=== PATIENT | female | born 1955 | race Caucasian/White ===

== ENCOUNTER 2018-02-03 11:49 | Inpatient (IN) | payer OTHER, MEDICAID ==
[~2018-02-03] VITALS: Ht 175.3 cm; Wt 93.6 kg
[2018-02-03] MEDS ORDERED: OXYC10TA6 PO (12:29)
[2018-02-03] MEDS ORDERED: DULO60CA7 PO (12:29)
[2018-02-03] MEDS ORDERED: TRAM50TA2 PO (12:29)
[2018-02-03] MEDS ORDERED: methylPREDNISolone SOD SUCC 125 MG/2 ML IVP ONE (12:30)
[2018-02-03] MEDS ORDERED: SODIUM CHLORIDE 0.9% 1,000ML IVBOLUS ONE (12:30)
[2018-02-03] MEDS ORDERED: ALBUTEROL SULFATE 2.5 MG/3 ML NPPB ONE (12:30)
[2018-02-03] MEDS ORDERED: AZITHROMYCIN 500 MG in SODIUM CHLORIDE 0.9% 250 ML IVPB ONE (12:30)
[2018-02-03] MEDS ORDERED: SODIUM CHLORIDE FLUSH 10ML SYR IVF ONE (12:30)
[2018-02-03] MEDS ORDERED: ALBUTEROL SULFATE 2.5MG/0.5ML ONE (12:38)
[2018-02-03] MEDS ORDERED: methylPREDNISolone SOD SUCC 125 MG/2 ML ONE (12:45)
[2018-02-03 13:03] LABS: ALBUMIN 2.7 g/dL (3.4-5.0); ANION GAP 13 mmol/L (5-15); CALCIUM 8.7 mg/dL (8.5-10.1); CHLORIDE 94 mmol/L (98-107); MEAN CORPUSCULAR HEMOGLOBIN 30.7 pg (27.0-34.8); MEAN CORPUSCULAR HGB CONC 34.6 g/dL (32.4-35.8); MEAN CORPUSCULAR VOLUME 88.8 fL (80-100); MEAN PLATELET VOLUME 8.6 fL (7.4-10.4); PLATELET COUNT 445 x10^3/uL (130-400); RED BLOOD COUNT 4.44 x10^6/uL (3.82-5.3); RED CELL DISTRIBUTION WIDTH 13.2 % (9.6-15.2)
[2018-02-03 13:09] LABS: ALANINE AMINOTRANSFERASE 29 U/L (12-78); ALKALINE PHOSPHATASE 115 U/L (45-117); BILIRUBIN,TOTAL 1.3 mg/dL (0.2-1.0); CREATININE 1.01 mg/dL (0.55-1.02); TROPONIN I < 0.015 ng/mL (0.000-0.045)
[2018-02-03 13:28] LABS: MD YES
[2018-02-03 13:30] LABS: <RBC MORPHOLOGY> NORMAL; BANDS%(MANUAL) 1 % (0-7); LYMPH#(MANUAL) 1.48 x10^3/uL (1-3.4); LYMPHS% (MANUAL) 5 % (22-44); MONOS#(MANUAL) 2.36 x10^3/uL (0.3-2.7); MONOS% (MANUAL) 8 % (2-9); SEG#(MANUAL) 25.37 x10^3/uL (1.8-6.8); SEGS% (MANUAL) 86 % (42-75)
[2018-02-03] MEDS ORDERED: RIVAROXABAN 20 MG TABLET PO ONE (13:30)
[2018-02-03] MEDS ORDERED: SODIUM CHLORIDE 0.9%, 500ML IVBOLUS ONE (13:30)
[2018-02-03] MEDS ORDERED: MORPHINE SULFATE 4 MG/ML, 1ML IVPush ONE (13:30)
[2018-02-03] MEDS ORDERED: POTASSIUM CHLORIDE 20 MEQ TAB.ER.PRT PO ONE (13:30)
[2018-02-03] MEDS ORDERED: CEFTRIAXONE PMX 1GM/50ML 50 ML IV ONE (13:30)
[2018-02-03 13:31] LABS: <PLATELET ESTIMATE> INCREASED; <PLT MORPHOLOGY> NORMAL PLT MORPH
[2018-02-03] MEDS ORDERED: MORPHINE SULFATE 4 MG/ML, 1ML ONE (13:49)
[2018-02-03] MEDS ORDERED: POTASSIUM CHLORIDE 20 MEQ TAB.ER.PRT ONE (13:49)
[2018-02-03] MEDS ORDERED: RIVAROXABAN 20 MG TABLET ONE (13:49)
[2018-02-03] MEDS ORDERED: MAGNESIUM SULFATE PMX 2GM/50ML 50 ML IV ONE (14:00)
[2018-02-03] MEDS ORDERED: CEFTRIAXONE PMX 1GM/50ML 50 ML ONE (14:44)
[2018-02-03] MEDS ORDERED: ONDANSETRON 2MG/ML, 2ML IVPB PRN (15:00)
[2018-02-03] MEDS ORDERED: DOCUSATE 100 MG CAPSULE PO PRN (15:00)
[2018-02-03] MEDS ORDERED: NICOTINE 14MG/24 HR PATCH.TD24 TD ONE (15:00)
[2018-02-03] MEDS ORDERED: DIGOXIN 0.25 MG/ML, 2ML IVPush ONE (15:00)
[2018-02-03] MEDS ORDERED: DILTIAZEM 5 MG/ML, 5ML IVPush ONE (15:00)
[2018-02-03] MEDS ORDERED: KETOROLAC 30 MG/1 ML IVPush PRN (15:00)
[2018-02-03] MEDS ORDERED: PHARMACY MAY ADJ FOR RENAL FX MC PRN (15:00)
[2018-02-03] MEDS ORDERED: SIMETHICONE DROPS 40 MG/0.6 ML BOTTLE PO PRN (15:00)
[2018-02-03] MEDS ORDERED: ACETAMINOPHEN 325 MG TABLET PO PRN (15:00)
[2018-02-03] MEDS ORDERED: OMNIPAQUE 350 MG/ML, 100ML BOTTLE ONE (15:46)
[2018-02-03] MEDS: METHOCARBAMOL 500 MG TABLET PO SCH ×2 (16:00→20:30)
[2018-02-03 16:25] VITALS: BP 96/63
[2018-02-03] MEDS: OXYcodone IR 5MG TABLET PO PRN (17:02)
[2018-02-03] MEDS: POTASSIUM CHLORIDE 20 MEQ TAB.ER.PRT PO SCH (17:02)
[2018-02-03] MEDS: GUAIFENESIN 200 MG TABLET PO SCH ×2 (17:03→20:29)
[2018-02-03] MEDS: ENOXAPARIN 100 MG/ML SQ SCH (17:03)
[2018-02-03] MEDS: SODIUM CHLORIDE 0.9% 1,000 ML IV SCH (17:36)
[2018-02-03 18:29] LABS: MICROSCOPIC AUTO
[2018-02-03] MEDS: DOXYCYCLINE 100 MG in DEXTROSE 5% 250 ML IV SCH (18:35)
[2018-02-03] MEDS: LIDODERM 5% PATCH TD SCH (18:36)
[2018-02-03 18:38] LABS: CULTURE INDICATED? NO
[2018-02-03 20:19] VITALS: BP 113/69
[2018-02-03] MEDS: FAMOTIDINE 20 MG TABLET PO SCH (20:29)
[2018-02-04] MEDS: OXYcodone IR 5MG TABLET PO PRN ×2 (02:08→10:57)
[2018-02-04 03:30] VITALS: BP 112/65
[2018-02-04 05:06] LABS: MEAN CORPUSCULAR HEMOGLOBIN 30.6 pg (27.0-34.8); MEAN CORPUSCULAR HGB CONC 33.8 g/dL (32.4-35.8); MEAN CORPUSCULAR VOLUME 90.5 fL (80-100); MEAN PLATELET VOLUME 8.6 fL (7.4-10.4); PLATELET COUNT 430 x10^3/uL (130-400); RED CELL DISTRIBUTION WIDTH 12.9 % (9.6-15.2)
[2018-02-04 05:16] LABS: ALANINE AMINOTRANSFERASE 31 U/L (12-78); ALBUMIN 2.5 g/dL (3.4-5.0); ANION GAP 7 mmol/L (5-15); CALCIUM 8.5 mg/dL (8.5-10.1); CHLORIDE 102 mmol/L (98-107); CREATININE 0.68 mg/dL (0.55-1.02)
[2018-02-04] MEDS: DOXYCYCLINE 100 MG in DEXTROSE 5% 250 ML IV SCH ×2 (05:20→16:24)
[2018-02-04] MEDS: METHOCARBAMOL 500 MG TABLET PO SCH ×4 (05:21→22:05)
[2018-02-04] MEDS: GUAIFENESIN 200 MG TABLET PO SCH ×4 (05:21→22:05)
[2018-02-04] MEDS: ENOXAPARIN 100 MG/ML SQ SCH ×2 (05:23→16:26)
[2018-02-04 05:25] LABS: ALKALINE PHOSPHATASE 105 U/L (45-117); BILIRUBIN,TOTAL 0.4 mg/dL (0.2-1.0); TOTAL PROTEIN 7.2 g/dL (6.4-8.2)
[2018-02-04 05:33] LABS: BASOPHILS # (AUTO) 0.06 x10^3/uL (0-0.1); BASOPHILS % (AUTO) 0 % (0-1); EOSINOPHILS % (AUTO) 0 % (1-7); LYMPHOCYTES # (AUTO) 0.96 x10^3/uL (1-3.4); LYMPHOCYTES % (AUTO) 5 % (22-44); MD SCAN; MONOCYTES # (AUTO) 0.43 x10^3/uL (0.2-0.8); MONOCYTES % (AUTO) 2 % (2-9); NEUTROPHILS # (AUTO) 17.52 x10^3/uL (1.8-6.8); NEUTROPHILS % (AUTO) 92 % (42-75)
[2018-02-04 08:11] VITALS: BP 116/79
[2018-02-04 08:24] LABS: INTERNATIONAL NORMALIZED RATIO 1.14 (0.93-1.1); PROTHROMBIN TIME 11.7 Seconds (9.6-11.5)
[2018-02-04] MEDS: SODIUM CHLORIDE 0.9% 1,000 ML IV SCH (08:31)
[2018-02-04] MEDS: FAMOTIDINE 20 MG TABLET PO SCH ×2 (08:31→22:05)
[2018-02-04] MEDS: POTASSIUM CHLORIDE 20 MEQ TAB.ER.PRT PO SCH (08:32)
[2018-02-04] MEDS: DULOXETINE 30 MG CAPSULE.DR PO SCH (08:32)
[2018-02-04] MEDS: CEFTRIAXONE 1,000 MG in SODIUM CHLORIDE 0.9% 50 ML IVPB SCH (12:41)
[2018-02-04 14:03] VITALS: BP 103/65
[2018-02-04 18:03] VITALS: BP 136/73
[2018-02-04] MEDS: METOPROLOL TARTRATE 25 MG TABLET PO SCH (22:06)
[2018-02-04] MEDS: LIDODERM 5% PATCH TD SCH (22:11)
[2018-02-05 00:44] VITALS: BP 105/71
[2018-02-05] MEDS: ENOXAPARIN 100 MG/ML SQ SCH ×2 (05:00→16:33)
[2018-02-05] MEDS: GUAIFENESIN 200 MG TABLET PO SCH ×4 (05:13→20:52)
[2018-02-05] MEDS: DOXYCYCLINE 100 MG in DEXTROSE 5% 250 ML IV SCH ×2 (05:13→16:30)
[2018-02-05] MEDS: METHOCARBAMOL 500 MG TABLET PO SCH ×4 (05:14→20:52)
[2018-02-05] MEDS: OXYcodone IR 5MG TABLET PO PRN ×3 (05:14→20:53)
[2018-02-05 06:17] LABS: BASOPHILS # (AUTO) 0.05 x10^3/uL (0-0.1); BASOPHILS % (AUTO) 0 % (0-1); EOSINOPHILS # (AUTO) 0.06 x10^3/uL (0-0.4); EOSINOPHILS % (AUTO) 0 % (1-7); LYMPHOCYTES # (AUTO) 1.74 x10^3/uL (1-3.4); LYMPHOCYTES % (AUTO) 11 % (22-44); MD NO; MEAN CORPUSCULAR HEMOGLOBIN 30.8 pg (27.0-34.8); MEAN CORPUSCULAR VOLUME 90.5 fL (80-100); MEAN PLATELET VOLUME 8.1 fL (7.4-10.4); MONOCYTES # (AUTO) 1.17 x10^3/uL (0.2-0.8); MONOCYTES % (AUTO) 7 % (2-9); NEUTROPHILS # (AUTO) 13.07 x10^3/uL (1.8-6.8); NEUTROPHILS % (AUTO) 81 % (42-75); PLATELET COUNT 467 x10^3/uL (130-400); RED BLOOD COUNT 3.68 x10^6/uL (3.82-5.3); RED CELL DISTRIBUTION WIDTH 13.6 % (9.6-15.2)
[2018-02-05 06:24] LABS: ALBUMIN 2.4 g/dL (3.4-5.0); ANION GAP 6 mmol/L (5-15); CALCIUM 8.5 mg/dL (8.5-10.1); CHLORIDE 103 mmol/L (98-107); CREATININE 0.69 mg/dL (0.55-1.02)
[2018-02-05 08:36] VITALS: BP 107/64
[2018-02-05] MEDS: METOPROLOL TARTRATE 25 MG TABLET PO SCH ×2 (08:38→20:53)
[2018-02-05] MEDS: FAMOTIDINE 20 MG TABLET PO SCH ×2 (08:38→20:52)
[2018-02-05] MEDS: DULOXETINE 30 MG CAPSULE.DR PO SCH (08:38)
[2018-02-05] MEDS: CEFTRIAXONE 1,000 MG in SODIUM CHLORIDE 0.9% 50 ML IVPB SCH (12:41)
[2018-02-05 14:34] VITALS: BP 108/62
[2018-02-05 20:55] VITALS: BP 108/58
[2018-02-05] MEDS: LIDODERM 5% PATCH TD SCH (21:02)
[2018-02-06 01:19] VITALS: BP 124/74
[2018-02-06 04:55] LABS: BASOPHILS # (AUTO) 0.11 x10^3/uL (0-0.1); BASOPHILS % (AUTO) 1 % (0-1); EOSINOPHILS # (AUTO) 0.04 x10^3/uL (0-0.4); EOSINOPHILS % (AUTO) 1 % (1-7); LYMPHOCYTES # (AUTO) 1.41 x10^3/uL (1-3.4); LYMPHOCYTES % (AUTO) 15 % (22-44); MD NO; MEAN CORPUSCULAR HEMOGLOBIN 30.5 pg (27.0-34.8); MEAN CORPUSCULAR HGB CONC 33.8 g/dL (32.4-35.8); MEAN CORPUSCULAR VOLUME 90.2 fL (80-100); MEAN PLATELET VOLUME 8.3 fL (7.4-10.4); MONOCYTES # (AUTO) 1.12 x10^3/uL (0.2-0.8); MONOCYTES % (AUTO) 12 % (2-9); NEUTROPHILS # (AUTO) 6.59 x10^3/uL (1.8-6.8); NEUTROPHILS % (AUTO) 71 % (42-75); PLATELET COUNT 454 x10^3/uL (130-400); RED BLOOD COUNT 3.98 x10^6/uL (3.82-5.3); RED CELL DISTRIBUTION WIDTH 13.7 % (9.6-15.2)
[2018-02-06 05:04] LABS: ALBUMIN 2.3 g/dL (3.4-5.0); ANION GAP 7 mmol/L (5-15); CALCIUM 8.2 mg/dL (8.5-10.1); CHLORIDE 106 mmol/L (98-107)
[2018-02-06 05:05] LABS: CREATININE 0.63 mg/dL (0.55-1.02)
[2018-02-06] MEDS: DOXYCYCLINE 100 MG in DEXTROSE 5% 250 ML IV SCH (05:19)
[2018-02-06] MEDS: ENOXAPARIN 100 MG/ML SQ SCH (05:21)
[2018-02-06] MEDS: GUAIFENESIN 200 MG TABLET PO SCH ×2 (05:21→11:47)
[2018-02-06] MEDS: METHOCARBAMOL 500 MG TABLET PO SCH ×2 (05:21→11:47)
[2018-02-06] MEDS: OXYcodone IR 5MG TABLET PO PRN ×2 (05:27→12:48)
[2018-02-06 08:17] VITALS: BP 120/60
[2018-02-06] MEDS: FAMOTIDINE 20 MG TABLET PO SCH (08:42)
[2018-02-06] MEDS: DULOXETINE 30 MG CAPSULE.DR PO SCH (08:42)
[2018-02-06] MEDS: METOPROLOL TARTRATE 25 MG TABLET PO SCH (08:42)
[2018-02-06] MEDS ORDERED: GUAI200T3 PO (12:21)
[2018-02-06] MEDS ORDERED: CEFD300C37 PO (12:21)
[2018-02-06] MEDS ORDERED: NICO-487 TD (12:21)
[2018-02-06] MEDS ORDERED: METO25TA35 PO (12:21)
[2018-02-06] MEDS ORDERED: DOXY100T10 PO (12:21)
[2018-02-06] MEDS: CEFTRIAXONE 1,000 MG in SODIUM CHLORIDE 0.9% 50 ML IVPB SCH (13:00)
== END 2018-02-06 14:58 | disposition home or self-care (01) | DRG 871 ==
LOC: ED 14:05 → EDIP 14:39 → 5SO 16:08 → DCLOUNGE 02-06 14:45
PROVIDERS: ADMIT Internal Medicine; ATTEND Internal Medicine
DX: A41.9 Sepsis, unspecified organism (principal); J18.9 Pneumonia, unspecified organism; F11.20 Opioid dependence, uncomplicated; E87.1 Hypo-osmolality and hyponatremia; E87.2 Acidosis; E44.0 Moderate protein-calorie malnutrition; I48.92 Unspecified atrial flutter; D68.59 Other primary thrombophilia; J44.0 Chronic obstructive pulmonary disease with (acute) lower respiratory infection; F17.210 Nicotine dependence, cigarettes, uncomplicated; E87.6 Hypokalemia; E83.42 Hypomagnesemia; E86.0 Dehydration; M48.02 Spinal stenosis, cervical region; F32.9 Major depressive disorder, single episode, unspecified; F41.9 Anxiety disorder, unspecified; I48.0 Paroxysmal atrial fibrillation; M54.9 Dorsalgia, unspecified; Z83.3 Family history of diabetes mellitus; G89.29 Other chronic pain; F12.90 Cannabis use, unspecified, uncomplicated; E03.9 Hypothyroidism, unspecified; Z79.899 Other long term (current) drug therapy; Z79.1 Long term (current) use of non-steroidal anti-inflammatories (NSAID); Z79.2 Long term (current) use of antibiotics; Z88.5 Allergy status to narcotic agent; Z68.30 Body mass index [BMI] 30.0-30.9, adult; Z90.49 Acquired absence of other specified parts of digestive tract; Z71.51 Drug abuse counseling and surveillance of drug abuser
CPT/HCPCS: 36415; 71045; 71275; 76700; 80048; 80053; 81001; 82040; 83036; 83605; 83735; 83880; 84100; 84145; 84439; 84443; 84484; 85025; 85610; 85730; 87040; 87070; 87205; 93005; 93306; 94640; 96374; 96375; J0456; J0696; J1650; J7060; J7613; Q9967; J1160; J2930; J3475; J7030; J7050

== ENCOUNTER → 2018-05-19 | Outpatient (CLI) | payer OTHER, MEDICAID ==
[~2018-05-19] MED LIST: CEFD300C37 PO; DOXY100T10 PO; DULO60CA7 PO; GUAI200T3 PO; METO25TA35 PO; NICO-487 TD; OXYC10TA6 PO; REGADENOSON 0.4 MG/5 ML SYRINGE ONE; TRAM50TA2 PO
== END | disposition home or self-care (01) ==
LOC: CFH 08:23
PROVIDERS: ATTEND Internal Medicine Cardiovascular Disease
DX: Z01.810 Encounter for preprocedural cardiovascular examination (principal)
CPT/HCPCS: 78452; 93017; A9502; J2785

== ENCOUNTER 2018-07-07 05:38 | Inpatient (IN) | payer OTHER, MEDICAID ==
[~2018-07-07] VITALS: Ht 174 cm; Wt 98.0 kg
[~2018-07-07 05:38] MED LIST changes: -REGADENOSON 0.4 MG/5 ML SYRINGE ONE
[2018-07-07] MEDS ORDERED: LACTATED RINGERS 1,000 ML IV SCH (06:10)
[2018-07-07 06:35] VITALS: BP 105/72
[2018-07-07] MEDS ORDERED: BUPIVACAINE/PF-EPI 0.5% 1:200K ONE (06:51)
[2018-07-07] MEDS ORDERED: THROMBIN 5,000 UNIT VIAL TP ONE (06:52)
[2018-07-07] MEDS ORDERED: BACITRACIN 50,000 UNIT ONE (06:52)
[2018-07-07] MEDS ORDERED: MIDAZOLAM 1 MG/ML, 2ML ONE (07:37)
[2018-07-07] MEDS ORDERED: PROPOFOL 50 ML ONE ×2 (07:37→08:45)
[2018-07-07] MEDS ORDERED: FENTANYL PF 250 MCG/5ML ONE (07:38)
[2018-07-07] MEDS ORDERED: METOCLOPRAMIDE 5 MG/ML, 2ML IV PRN (09:30)
[2018-07-07] MEDS ORDERED: METOPROLOL 1 MG/ML, 5ML IV PRN (09:30)
[2018-07-07] MEDS ORDERED: OXYcodone 5 MG/5 ML ORAL.SOL UDC PO PRN (09:30)
[2018-07-07] MEDS ORDERED: hydrALAzine 20 MG/ML, 1ML IV PRN (09:30)
[2018-07-07] MEDS ORDERED: MORPHINE SULFATE 4 MG/ML, 1ML IVPush PRN (09:30)
[2018-07-07] MEDS ORDERED: KETOROLAC 30 MG/1 ML IV PRN (09:30)
[2018-07-07] MEDS ORDERED: MEPERIDINE/PF 25MG/0.5ML IVPush PRN (09:30)
[2018-07-07] MEDS ORDERED: ALBUTEROL SULFATE 2.5 MG/3 ML NPPB PRN (09:30)
[2018-07-07] MEDS ORDERED: LORazepam 2 MG/ML, 1ML IVPush PRN (09:30)
[2018-07-07] MEDS ORDERED: ACETAMINOPHEN 325 MG TABLET PO PRN (09:30)
[2018-07-07] MEDS ORDERED: HYDROmorphone 2 MG/ML, 1ML ONE (09:39)
[2018-07-07] MEDS ORDERED: FENTANYL PF 100 MCG/2ML ONE (09:39)
[2018-07-07] MEDS ORDERED: ACETAMINOPHEN 650 MG/20.3 ML UDC ONE (09:39)
[2018-07-07] MEDS ORDERED: OXYcodone 5 MG/5 ML ORAL.SOL UDC ONE (09:40)
[2018-07-07] MEDS: FENTANYL PF 100 MCG/2ML IV PRN ×2 (09:41→09:49)
[2018-07-07] MEDS: HYDROmorphone 2 MG/ML, 1ML IVPush PRN ×2 (09:59→10:10)
[2018-07-07] MEDS ORDERED: METHOCARBAMOL 1,000 MG in DEXTROSE 5% 100 ML IV ONE (10:00)
[2018-07-07] MEDS ORDERED: ONDANSETRON 2MG/ML, 2ML ONE (10:30)
[2018-07-07] MEDS ORDERED: PROPOFOL 10 MG/ML, 20ML ONE (10:30)
[2018-07-07] MEDS ORDERED: DEXAMETHASONE 4 MG/ML, 1ML ONE (10:30)
[2018-07-07] MEDS ORDERED: CEFAZOLIN 1,000 MG ONE (10:30)
[2018-07-07] MEDS ORDERED: ROCURONIUM 10MG/ML,5ML ONE (10:30)
[2018-07-07] MEDS ORDERED: SUCCINYLCHOLINE 20 MG/ML, 10ML ONE (10:30)
[2018-07-07] MEDS ORDERED: ONDANSETRON 2MG/ML, 2ML IV PRN (12:30)
[2018-07-07] MEDS ORDERED: HYDROcodone/APAP 10/325 MG TABLET PO PRN ×2 (12:30→16:30)
[2018-07-07] MEDS ORDERED: BISACODYL 10 MG SUPP PR PRN (12:30)
[2018-07-07] MEDS ORDERED: morphine SULFATE 10 MG/ML, 1ML IV PRN (12:30)
[2018-07-07] MEDS ORDERED: DOXYCYCLINE 100MG TABLET PO PRN (12:30)
[2018-07-07] MEDS ORDERED: PROMETHAZINE 25 MG/ML, 1ML IM PRN (12:30)
[2018-07-07] MEDS ORDERED: DIPHENHYDRAMINE 50 MG CAPSULE PO PRN (12:30)
[2018-07-07] MEDS ORDERED: OXYcodone/APAP 5/325MG TABLET PO PRN (12:30)
[2018-07-07] MEDS ORDERED: MAGNESIUM HYDROXIDE 8%, 30ML UDC PO PRN (12:30)
[2018-07-07] MEDS ORDERED: MAALOX/HYOSCYAMINE/LIDOCAINE 45 ML BTL PO ONE ×2 (12:30→13:00)
[2018-07-07] MEDS ORDERED: LABETALOL 5MG/ML, 20ML IV PRN (12:30)
[2018-07-07] MEDS: D5%-0.9% NACL+KCL 20MEQ 1,000 ML IV SCH (13:56)
[2018-07-07] MEDS: DEXAMETHASONE 4 MG/ML, 1ML IV SCH ×2 (13:57→20:20)
[2018-07-07 14:45] VITALS: BP 94/60
[2018-07-07] MEDS: OXYcodone IR 5MG TABLET PO PRN ×2 (16:29→20:19)
[2018-07-07] MEDS ORDERED: CEFAZOLIN PMX 1GM/50ML 50 ML IVPB SCH (16:30)
[2018-07-07] MEDS: CEFAZOLIN PMX 1GM/50ML 50 ML IVPB SCH (16:32)
[2018-07-07] MEDS: METHOCARBAMOL 750 MG in DEXTROSE 5% 100 ML IV SCH (17:31)
[2018-07-07 20:20] VITALS: BP 122/73
[2018-07-07] MEDS ORDERED: ZOLPIDEM 5MG TABLET PO PRN (21:00)
[2018-07-08 00:09] VITALS: BP 115/67
[2018-07-08] MEDS: D5%-0.9% NACL+KCL 20MEQ 1,000 ML IV SCH ×2 (01:00→13:30)
[2018-07-08] MEDS: CEFAZOLIN PMX 1GM/50ML 50 ML IVPB SCH ×3 (01:16→18:27)
[2018-07-08] MEDS: DEXAMETHASONE 4 MG/ML, 1ML IV SCH ×4 (01:17→20:53)
[2018-07-08] MEDS: METHOCARBAMOL 750 MG in DEXTROSE 5% 100 ML IV SCH (02:30)
[2018-07-08 03:03] VITALS: BP 115/71
[2018-07-08 08:34] VITALS: BP 96/56
[2018-07-08] MEDS: DULOXETINE 30 MG CAPSULE.DR PO SCH (08:43)
[2018-07-08] MEDS: SENNA/DOCUSATE TABLET PO SCH (08:43)
[2018-07-08] MEDS: OXYcodone IR 5MG TABLET PO PRN ×3 (08:43→19:17)
[2018-07-08] MEDS: CYCLOBENZAPRINE 10 MG TABLET PO PRN ×2 (11:24→19:17)
[2018-07-08 15:37] VITALS: BP 107/69
[2018-07-08 19:15] VITALS: BP 122/70
[2018-07-08] MEDS: FAMOTIDINE 20 MG TABLET PO SCH (20:52)
[2018-07-09] MEDS: OXYcodone IR 5MG TABLET PO PRN ×2 (00:57→07:50)
[2018-07-09] MEDS: D5%-0.9% NACL+KCL 20MEQ 1,000 ML IV SCH (02:00)
[2018-07-09 02:09] VITALS: BP 103/65
[2018-07-09] MEDS: CEFAZOLIN PMX 1GM/50ML 50 ML IVPB SCH (02:13)
[2018-07-09] MEDS: DEXAMETHASONE 4 MG/ML, 1ML IV SCH ×2 (02:20→07:50)
[2018-07-09 07:25] VITALS: BP 122/78
[2018-07-09] MEDS: DULOXETINE 30 MG CAPSULE.DR PO SCH (08:42)
[2018-07-09] MEDS: FAMOTIDINE 20 MG TABLET PO SCH (08:42)
[2018-07-09] MEDS: SENNA/DOCUSATE TABLET PO SCH (08:42)
[2018-07-09] MEDS: CYCLOBENZAPRINE 10 MG TABLET PO PRN (08:42)
[2018-07-09] MEDS ORDERED: DOXYCYCLINE 100MG TABLET PO SCH (09:00)
[2018-07-09] MEDS ORDERED: OXYC10TA6 PO (10:28)
[2018-07-09] MEDS ORDERED: CYCL-259 PO (10:29)
[2018-07-09] MEDS ORDERED: DOXY100C2 PO (10:31)
[2018-07-09] MEDS ORDERED: METHOCARBAMOL 750 MG TABLET PO SCH (18:30)
== END 2018-07-09 11:08 | disposition home or self-care (01) | DRG 472 ==
LOC: ORIP 05:38 → 4NOR 10:48
PROVIDERS: ADMIT Neurological Surgery; ATTEND Neurological Surgery
PROC: 4A11X4G Monitoring of Peripheral Nervous Electrical Activity, Intraoperative, External Approach (ICD-10-PCS; 2018-07-07)
PROC: 0RT30ZZ Resection of Cervical Vertebral Disc, Open Approach (ICD-10-PCS; 2018-07-07)
PROC: 0RG10A0 Fusion of Cervical Vertebral Joint with Interbody Fusion Device, Anterior Approach, Anterior Column, Open Approach (ICD-10-PCS; principal; 2018-07-07 08:00)
DX: M48.02 Spinal stenosis, cervical region (principal); M50.01 Cervical disc disorder with myelopathy, high cervical region; F41.9 Anxiety disorder, unspecified; M19.90 Unspecified osteoarthritis, unspecified site; F32.9 Major depressive disorder, single episode, unspecified; G43.909 Migraine, unspecified, not intractable, without status migrainosus; M50.11 Cervical disc disorder with radiculopathy, high cervical region; G89.4 Chronic pain syndrome; M43.12 Spondylolisthesis, cervical region; G47.33 Obstructive sleep apnea (adult) (pediatric); F17.210 Nicotine dependence, cigarettes, uncomplicated; Z83.3 Family history of diabetes mellitus; Z82.49 Family history of ischemic heart disease and other diseases of the circulatory system; Z88.6 Allergy status to analgesic agent
CPT/HCPCS: 36415; 71046; 72040; 72050; 72125; 80048; 81001; 85025; 85610; 85730; 93005; C1713; G0378; J0690; J1100; J1170; J2250; J2405; J2704; J3010; C1762; J0330; J2270; J2800; J3480; J7120